=== PATIENT | female | born 2000 | race Caucasian/White ===

== ENCOUNTER 2020-10-17 13:00 | Emergency (ER) | payer OTHER ==
[2020-10-17] MEDS ORDERED: Sodium Chloride 0.9% 10 ML Syringe FLUSH PRN (13:12)
[2020-10-17] MEDS ORDERED: HYDROmorphone 1 MG/ML Syringe IVPUSH ONE (13:12)
--- NOTE | 2020-10-17 13:40 | EDM.PDOC ---
ED HPI GENERAL MEDICAL PROBLEM - General Chief Complaint: Upper Extremity Injury/Pain Stated Complaint: RT WRIST INJURY Time Seen by Provider: 10/17/20 13:10 Source of Information: Reports: Patient History Limitations: Reports: No Limitations - History of Present Illness INITIAL COMMENTS - FREE TEXT/NARRATIVE: The patient presents with right wrist pain. She was outside roller blading and lost control and fell and fractured her right wrist. She did not hit her head or hurt her neck. She is right handed. She has obvious deformity to her right wrist. She has no chest pain or abdominal pain. Onset: Sudden Duration: Minutes: Location: Reports: Upper Extremity, Right (wrist fracture) Quality: Reports: Sharp Severity: Severe Improves with: Reports: Immobilization Worsens with: Reports: Movement Context: Reports: Trauma (Roller blading and she fell) Associated Symptoms: Reports: No Other Symptoms Right Wrist Pain Score (Numeric/FACES): 7 - Related Data Allergies Allergy/AdvReac Type Severity Reaction Status Date / Time No Known Allergies Allergy Verified 10/17/20 13:09 Home Meds: Home Meds Hydrocodone/Acetaminophen [Hydrocodone-Acetamin 5-325 mg] 1 - 2 each PO Q6HR PRN #10 tablet 10/17/20 [Rx] Past Medical History - Past Surgical History HEENT Surgical History: Reports: Oral Surgery Other HEENT Surgeries/Procedures: [place] tooth extraction Musculoskeletal Surgical History: Reports: Arthroscopic Knee Social & Family History - Tobacco Use Tobacco Use Status *Q: Never Tobacco User - Recreational Drug Use Recreational Drug Use: No Review of Systems - Review of Systems Review Of Systems: See Below Constitutional: Reports: No Symptoms Eyes: Reports: No Symptoms Ears: Reports: No Symptoms Nose: Reports: No Symptoms Mouth/Throat: Reports: No Symptoms Respiratory: Reports: No Symptoms Cardiovascular: Reports: No Symptoms GI/Abdominal: Reports: No Symptoms Genitourinary: Reports: No Symptoms Musculoskeletal: Reports: Other (deformity of her right wrist) ED EXAM, GENERAL - Physical Exam Exam: See Below Exam Limited By: No Limitations General Appearance: Alert, Mild Distress Eye Exam: Bilateral Eye: EOMI Ears: Normal External Exam Nose: Normal Inspection Head: Atraumatic, Normocephalic Neck: Normal Inspection, Supple, Non-Tender Respiratory/Chest: No Respiratory Distress Extremities: Other (Deformity and pain upon palpation to the right wrist with edema. Good sensation and capillary refill distally.) ED TRAUMA EXTREMITY PROCEDURES - Joint Reduction Right Wrist Sedation: Conscious Sedation Pre-Procedure NV Status: Normal Post-Procedure NV Status: Normal Technique: Traction/Counter Traction Number of Attempts: 1 Post-Reduction Imaging: Completely Reduced, Fracture Seen Joint Reduction Complications: No - Splinting Right Upper Extremity Splint Site: Right wrist Pre-Procedure NV Status: Normal Post-Procedure NV Status: Normal Splint Material: Fiberglass Splint Design: Sugar Tong Applied & Form Fitted By: Provider Provider Post-Splint Application NV Check: NV Status Normal, Good Position Complications: No Course - Vital Signs Last Recorded V/S: Last Vital Signs Temp 99.0 F 10/17/20 13:09 Pulse 94 10/17/20 13:09 Resp 17 10/17/20 13:09 BP 139/94 H 10/17/20 13:09 Pulse Ox 98 10/17/20 13:09 - Orders/Labs/Meds Orders: Active Orders 24 hr Category Date Time Status Peripheral IV Care [RC] . DIRECTED Care 10/17/20 13:12 Active Wrist 2V Rt [CR] Stat Exams 10/17/20 14:28 Taken Wrist Comp Min 3V Rt [CR] Stat Exams 10/17/20 13:13 Taken Lactated Ringers [Ringers, Lactated] 1,000 ml Med 10/17/20 14:07 Active IV .BOLUS Sodium Chloride 0.9% [Saline Flush] Med 10/17/20 13:12 Active 10 ml FLUSH ASDIRECTED PRN Peripheral IV Insertion Adult [OM.PC] Routine Oth 10/17/20 13:12 Ordered Medication Orders Lactated Ringer's (Ringers, Lactated) 1,000 mls @ 999 mls/hr IV .BOLUS ONE Stop: 10/17/20 15:07 Last Admin: 10/17/20 14:11 Dose: 999 mls/hr Documented by: NII Sodium Chloride (Sodium Chloride 0.9% 10 Ml Syringe) 10 ml FLUSH ASDIRECTED PRN PRN Reason: Keep Vein Open Last Admin: 10/17/20 13:18 Dose: 10 ml Documented by: NII Meds: Medications Generic Name Dose Route Start Last Admin Trade Name Freq PRN Reason Stop Dose Admin Lactated Ringer's 1,000 mls @ 999 mls/hr 10/17/20 14:07 10/17/20 14:11 Ringers, Lactated IV 10/17/20 15:07 999 mls/hr .BOLUS ONE Administration Sodium Chloride 10 ml 10/17/20 13:12 10/17/20 13:18 Sodium Chloride 0.9% 10 Ml Syringe FLUSH 10 ml ASDIRECTED PRN Administration Keep Vein Open Discontinued Medications Generic Name Dose Route Start Last Admin Trade Name Sukhjinder PRN Reason Stop Dose Admin Hydromorphone HCl 1 mg 10/17/20 13:12 10/17/20 13:18 Hydromorphone 1 Mg/Ml Syringe IVPUSH 10/17/20 13:13 1 mg ONETIME ONE Administration Lidocaine HCl Confirm 10/17/20 14:11 Xylocaine-Mpf 1% Administered 10/17/20 14:12 Dose 4 mls @ as directed .ROUTE .STK-MED ONE Propofol Confirm 10/17/20 14:10 Propofol 200 Mg/20 Ml Sdv Administered 10/17/20 14:11 Dose 400 mg .ROUTE .STK-MED ONE - Re-Assessments/Exams Free Text/Narrative Re-Assessment/Exam: 10/17/20 13:40 I ordered an IV saline lock, dilaudid 1mg IV and an x-ray of her wrist. 10/17/20 15:05 She has a distal radius fracture and ulnar styloid fracture. The radius is slightly impacted and dorsally displaced. I called Dr Garcia and he was okay with me reducing it. I had Polo our [employer]CH[employer]ICIAN professor of business administration come and help and she sedated the patient and I was able to reduce the fracture. I put her in a splint. I did a post reduction film and it was acceptably reduced. Dr Garcia will see her on Wednesday. Departure - Departure Time of Disposition: 15:10 Disposition: Home, Self-Care 01 Condition: Good Clinical Impression: Fall Qualifiers: Encounter type: initial encounter Qualified Code(s): W19.XXXA - Unspecified fall, initial encounter Closed fracture of right distal radius and ulna Qualifiers: Encounter type: initial encounter Qualified Code(s): S52.501A - Unspecified fracture of the lower end of right radius, initial encounter for closed fracture; S52.601A - Unspecified fracture of lower end of right ulna, initial encounter for closed fracture - Discharge Information *PRESCRIPTION DRUG MONITORING PROGRAM REVIEWED*: No *COPY OF PRESCRIPTION DRUG MONITORING REPORT IN PATIENT CHEO: No Prescriptions: Hydrocodone/Acetaminophen [Hydrocodone-Acetamin 5-325 mg] 1 - 2 each PO Q6HR PRN #10 tablet PRN Reason: Pain Referrals: PCP,None [Primary Care Provider] - Edward Garcia MD [Physician] - 1 Week Forms: ED Department Discharge Additional Instructions: Ice your wrist for 15 minutes 5 times per day for 2 days. Try to elevate your wrist above your heart as much as you can for 2 days. Take tylenol 1,000mg every 6 hours for pain or motrin 600g every 6 hours for pain. If that does not work try the hydrocodone. Follow up with Dr Garcia next Wednesday. Someone from his office will contact you. Please return if you are worse. Sepsis Event Note (ED) - Evaluation Sepsis Screening Result: No Definite Risk - Focused Exam Vital Signs: Vital Signs Temp Pulse Resp BP Pulse Ox 10/17/20 13:09 99.0 F 94 17 139/94 H 98 - My Orders Last 24 Hours: My Active Orders 10/17/20 13:12 Peripheral IV Care [RC] . DIRECTED Sodium Chloride 0.9% [Saline Flush] 10 ml FLUSH ASDIRECTED PRN Peripheral IV Insertion Adult [OM.PC] Routine 10/17/20 13:13 Wrist Comp Min 3V Rt [CR] Stat 10/17/20 14:07 Lactated Ringers [Ringers, Lactated] 1,000 ml IV .BOLUS 10/17/20 14:28 Wrist 2V Rt [CR] Stat - Assessment/Plan Last 24 Hours: My Active Orders 10/17/20 13:12 Peripheral IV Care [RC] . DIRECTED Sodium Chloride 0.9% [Saline Flush] 10 ml FLUSH ASDIRECTED PRN Peripheral IV Insertion Adult [OM.PC] Routine 10/17/20 13:13 Wrist Comp Min 3V Rt [CR] Stat 10/17/20 14:07 Lactated Ringers [Ringers, Lactated] 1,000 ml IV .BOLUS 10/17/20 14:28 Wrist 2V Rt [CR] Stat
[2020-10-17] MEDS ORDERED: Lactated Ringers 1,000 ML IV ONE (14:07)
[2020-10-17] MEDS ORDERED: Propofol 200 MG/20 ML SDV ONE (14:10)
--- NOTE | 2020-10-17 14:10 | PCM.PREANE ---
Preanesthetic Assessment - Procedure Proposed Procedure: closed reduction right wrist- rollerblading and fell- occured at 1220 - Anesthesia/Transfusion/Family Hx Anesthesia History: Prior Anesthesia Without Reaction Family History of Anesthesia Reaction: No Transfusion History: No Prior Transfusion(s) - Review of Systems General: No Symptoms Pulmonary: No Symptoms Cardiovascular: No Symptoms Gastrointestinal: No Symptoms Neurological: No Symptoms Other: Reports: None - Physical Assessment NPO Status Date: 10/17/20 NPO Status Time: 10:30 Vital Signs: Last Vital Signs Temp 99.0 F 10/17/20 13:09 Pulse 94 10/17/20 13:09 Resp 17 10/17/20 13:09 BP 139/94 H 10/17/20 13:09 Pulse Ox 98 10/17/20 13:09 Height: 6 ft 1 in Weight: 75.75 kg ASA Class: 1 Mental Status: Alert & Oriented x3 Airway Class: Mallampati = 1 Dentition: Reports: Normal Dentition Thyro-Mental Finger Breadths: 3 Mouth Opening Finger Breadths: 3 ROM/Head Extension: Full Lungs: Clear to Auscultation, Normal Respiratory Effort Cardiovascular: Regular Rate, Regular Rhythm - Allergies Allergies/Adverse Reactions: Allergies Allergy/AdvReac Type Severity Reaction Status Date / Time No Known Allergies Allergy Verified 10/17/20 13:09 - Blood Blood Available: No - Acknowledgements Anesthesia Type Planned: MAC Pt an Appropriate Candidate for the Planned Anesthesia: Yes Alternatives and Risks of Anesthesia Discussed w Pt/Guardian: Yes Pt/Guardian Understands and Agrees with Anesthesia Plan: Yes PreAnesthesia Questionnaire Cardiovascular History: Reports: None Respiratory History: Reports: None Gastrointestinal History: Reports: None LMP (Approximate): Other (See Below) (no possible way she said she could be ) Musculoskeletal History: Reports: None - Past Surgical History HEENT Surgical History: Reports: Oral Surgery Other HEENT Surgeries/Procedures: [place] tooth extraction Female Surgical History: Reports: Breast Biopsy Musculoskeletal Surgical History: Reports: Arthroscopic Knee - SUBSTANCE USE Tobacco Use Status *Q: Never Tobacco User Tobacco Use Within Last Twelve Months: No Second Hand Smoke Exposure: No Days Per Week of Alcohol Use: 1 Recreational Drug Use History: No - HOME MEDS Home Medications: Home Meds . [No Known Home Meds] 10/17/20 [History] - CURRENT (IN HOUSE) MEDS Current Meds: Current Medications Sodium Chloride (Sodium Chloride 0.9% 10 Ml Syringe) 10 ml FLUSH ASDIRECTED PRN PRN Reason: Keep Vein Open Last Admin: 10/17/20 13:18 Dose: 10 ml Documented by: Discontinued Medications Hydromorphone HCl (Hydromorphone 1 Mg/Ml Syringe) 1 mg IVPUSH ONETIME ONE Stop: 10/17/20 13:13 Last Admin: 10/17/20 13:18 Dose: 1 mg Documented by:
[2020-10-17] MEDS ORDERED: Lidocaine 1% 4 ML ONE (14:11)
--- NOTE | 2020-10-17 15:30 | CR ---
Right wrist: 4 views of the right wrist were obtained. Distal radial fracture is seen with distal end being slightly displaced posteriorly as well as posteriorly impacted causing dorsal tilt of the distal radial articular margin. Slightly displaced ulnar styloid avulsion fracture is seen. Soft tissue swelling is noted. Impression: 1. Wrist fracture as noted above. Diagnostic code #3
--- NOTE | 2020-10-17 15:31 | CR ---
Right wrist: 2 views of the right wrist were obtained. Comparison: Right wrist exam performed earlier on the same day. Fractures are identified within the distal radius and within the base of the ulnar styloid process. Alignment is very close to anatomic and significantly improved from prior study. Fiberglass cast is in place. No additional abnormality is seen through the cast. Impression: 1. Nondisplaced fractures as noted above. Fiberglass cast in place. Diagnostic code #2
== END 2020-10-17 15:35 | disposition home or self-care (01) ==
LOC: JD.ED 13:00
DX: S52.501A Unspecified fracture of the lower end of right radius, initial encounter for closed fracture (principal); S52.614A Nondisplaced fracture of right ulna styloid process, initial encounter for closed fracture; V00.121A Fall from non-in-line roller-skates, initial encounter; Y93.51 Activity, roller skating (inline) and skateboarding; Z23 Encounter for immunization
CPT/HCPCS: 25605; 73100; 73110; 96374; 99283; J1170; J2704; J7120; 01820; 99140